=== PATIENT | female | born 1985 | race Two or more races ===

== ENCOUNTER 2025-03-05 14:43 | Outpatient (RCR) | payer MEDICAID, SELFPAY ==
--- NOTE | 2025-03-05 15:08 | PTNOTE_ITS ---
PT OP Initial Eval Patient Information Outpatient Physical Therapy Treatment Date: 03/05/25 Visit Reasons: left shoulder pain Medical Diagnosis: M25.512 Treatment Dx #1: L shoulder pain Start of Care: 03/05/25 Date of Onset: 1 yr ago Smoking Status Smoking Status: Never smoker Initial Assessment Subjective: Pt is 39 yr old [place] spaking female who reports insidious onset of L shoulder pain last year. 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 The pain is described and burning and intense. PMH: none reported Imaging: Xray report in chart Pt goal: to get rid of the shoulder pain Objective: L shoulder AROM: ? FF: 120 deg ? Abd: 100 deg ? ER: 85 deg ? HBB: to L of L5 with pain ? Strength: 3+/5 in all planes Geovanny Lewis: positive Full can: less pain than empty can but painful Raymond's: positive Empty can:positive Assessment: Pt presents with positive supraspinatus pain provocation and labral testing and L shoulder weakness into all planes consistent with possible RC impingement and labral involvement. Pt may benefit from skilled therapy and has fair rehab potential. Short Term and [employer] Work[employer] Goals 1. Ind with HEP ? 2. Improved AROM of L shoulder to at least 155 deg FF, and 90 deg ? ER ? 3. Improved strength oL R shoulder to 4/5 in all planes ? 4. Pt will reach OH x10 with <=4/10 pain Treatment Plan ? 1. Manual therapy ? 2. Therex ? 3. Modalities as indicated, moist heat, ice, estim Frequency and Duration: 2x a week for 4 visits plus the evaluation Certification Dates: 03/05/25 to 06/03/25 Procedure Charges OP PT Eval Mod Complex 30 minutes: Yes
== END 2025-03-09 23:59 | disposition home or self-care (01) ==
LOC: CPTX 14:43
PROVIDERS: PCP Family Medicine; Referring Provider Family Medicine; Visit Provider Family Medicine
DX: M25.512 Pain in left shoulder (principal); R53.1 Weakness
CPT/HCPCS: 97162

== ENCOUNTER 2025-03-27 15:30 | Outpatient (RCR) | payer MEDICAID, SELFPAY ==
--- NOTE | 2025-03-12 18:56 | PT.ODAYNRPT ---
PT Outpatient Daily Note OP Daily Note Outpatient Physical Therapy Treatment Date: 03/12/25 Visit Reasons: left shoulder pain Subjective: Pt point to the L medial scap border as site of pain Objective: See F/S for therex MT: STM L UT and levator scap mm's x7' Assessment: Pt looks down a lot at work which may be causing some levator scap tightness and pain along with fwd head and shoulder posture. Plan: Continue per POC Length of Time (minutes) of Treatment: 30 Minutes Procedure Charges Therapeutic Exercise 30 minutes: Yes
--- NOTE | 2025-03-19 15:49 | PT.ODAYNRPT ---
PT Outpatient Daily Note OP Daily Note Outpatient Physical Therapy Treatment Date: 03/19/25 Visit Reasons: left shoulder pain Subjective: Pt point to the L medial scap border as site of pain. Objective: See F/S for therex MT: STM L UT and levator scap mm's x7' Assessment: Pt looks down a lot at work which may be causing some levator scap tightness and pain along with fwd head and shoulder posture. Plan: Continue per POC Length of Time (minutes) of Treatment: 30 Minutes Procedure Charges Therapeutic Exercise 30 minutes: Yes
--- NOTE | 2025-03-27 16:06 | PT.ODAYNRPT ---
PT Outpatient Daily Note OP Daily Note Outpatient Physical Therapy Treatment Date: 03/27/25 Visit Reasons: left shoulder pain Subjective: Pt point to the L medial scap border as site of pain that is variable in frequency Objective: See F/S for therex Assessment: Good response to foam roller on T/S and scapular region. Pt looks down a lot at work which may be causing some levator scap tightness and pain along with fwd head and shoulder posture. Plan: Continue per POC Length of Time (minutes) of Treatment: 30 Minutes Procedure Charges Therapeutic Exercise 30 minutes: Yes
== END 2025-04-08 23:59 | disposition home or self-care (01) ==
LOC: CPTX 15:30
PROVIDERS: PCP Family Medicine; Referring Provider Family Medicine; Visit Provider Family Medicine
DX: M25.512 Pain in left shoulder (principal); R53.1 Weakness
CPT/HCPCS: 97110